=== PATIENT | male | born 1980 | race Caucasian/White ===

== ENCOUNTER 2019-08-21 18:46 | Emergency (ER) | payer OTHER, SELFPAY ==
[2019-08-21 19:00] VITALS: BP 148/84; PULSE 78; RESP 16; TEMP 36.2; O2SAT 98
--- NOTE | 2019-08-21 19:06 | ED.GENADULT ---
HPI - General Adult General Chief complaint: Back Pain/Injury Stated complaint: back pain Time Seen by Provider: 08/21/19 19:06 Source: patient and RN notes reviewed Mode of arrival: ambulatory Limitations: no limitations History of Present Illness HPI narrative: 39-year-old male presents with complaints of LT mid-lower back pain/spasms for the past 5 days. Ice, heat, Tylenol, Naproxen (2 perscription tablets last this morning), stretching, and back brace with little relief. Eusebio says he was in his garage on 08/16/19 and went to bend over and back gave out. History of back problems. Denies new injuries or falls. Denies radiating pain, numbness, or tingling. Denies fever or chills. No upper or lower extremity pain or weakness. Exacerbating factors consist of prolong standing and bending. Denies diarrhea, nausea, vomiting, or abdominal pain. Tolerating po intake well. Denies problems with urinating or having a bowel movement, LBM today per patient and normal. No flank pain or hematuria or dysuria. Denies headaches, weakness, fatigue, myalgia, or facial swelling. Denies chest pain or dyspnea. Denies cough, rhinorrhea, congestion, sore throat. Denies recent traveling. Denies concerns for COVID-19 or exposures been home since [id number] order except for essential household needs and return home. Eusebio says he is currently working from home. Remains active. Some parts of this dictation were generated by voice recognition software and may contain typographical and/or grammatical inaccuracies. Related Data Home Medications Medication Instructions Recorded Confirmed methylphenidate HCl 54 mg PO DAILY 08/21/19 08/21/19 Allergies Allergy/AdvReac Type Severity Reaction Status Date / Time No Known Allergies Allergy Mild Verified 08/21/19 19:02 Review of Systems Review of Systems: Narrative: CONSTITUTIONAL: Denies fever, chills, sweats. EYES: Denies visual changes, redness, discharge. ENT: Denies rhinorrhea, congestion, sore throat, otalgia. CARDIOVASCULAR: Denies chest pain, palpitations, edema. RESPIRATORY: Denies dyspnea, wheezing, cough. GASTROINTESTINAL: Denies abdominal pain, nausea, vomiting, diarrhea. GENITOURINARY: Denies dysuria, hematuria, abnormal discharge. SKIN: Denies rash or itching. MUSCULOSKELETAL: Complains of LT mid-lower back pain/spasms. Denies joint pain or myalgia. NEUROLOGIC: Denies numbness or focal weakness. PSYCHIATRIC: Denies anxiety or depression. All systems reviewed & are unremarkable except as noted in HPI and below. [facility] Past Medical History Medical History ADHD (attention deficit hyperactivity disorder) Hernia congenital Surgical History Surgical History History of hernia surgery at age 3, congenital Family History Family History Father Diabetes mellitus Mother Hypertension Social History Social History Smoking status: Former smoker Tobacco type: cigarettes Second hand tobacco smoke exposure: No Smoking end date: 04/18/02 Alcohol intake: current Substance use: never Living arrangements: with family Occupation/Education: occupation Gender identity (if verbalized by the patient): Male Comments At time of signature, agree with nurse past medical, surgical, social, and family history. There is no relevant family history pertinent to the presenting complaint. Exam Narrative: Exam Narrative: GENERAL: This is a well-nourished, well-developed patient, in no apparent distress. Talks in full sentences without deficits and ambulates with slow steady gait without dyspnea. HEAD: normocephalic, atraumatic. EYES: PERRL. Sclera clear/white. Vision is grossly intact. NECK: Neck supple, non-tender without lympha
== END 2019-08-21 19:23 | disposition home or self-care (01) ==
PROVIDERS: Emergency Provider Nurse Practitioner Family; PCP Internal Medicine
DX: M54.5 Low back pain (principal); F90.9 Attention-deficit hyperactivity disorder, unspecified type; Z87.891 Personal history of nicotine dependence
CPT/HCPCS: 99213; G0463

== ENCOUNTER → 2020-12-30 14:35 | Outpatient (CLI) | payer OTHER, SELFPAY ==
--- NOTE | ~2020-12-30 | XR_ITS ---
XR toe 1st RT min 2V DATE: 12/30/2020 15:46 INDICATION: Right great toe pain TECHNIQUE: 3 views COMPARISON: None FINDINGS: There is prominent joint space narrowing and spurring at the first metatarsophalangeal join t consistent with severe osteoarthritis. There is mild hallux valgus and bunion deformity. No fracture, dislocation, periosteal reaction or bone destruction. 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
--- NOTE | ~2020-12-30 | XR_ITS ---
XR_CERV2-3V_CR DATE: 12/30/2020 15:46 INDICATION: Neck pain TECHNIQUE: AP, open mouth, lateral views COMPARISON: None FINDINGS: There is mild reversal of lower cervical spine curvature. There is levoscoliosis of the cer vical and upper thoracic spine. C1 and C2 are normally aligned and the odontoid process is intact. No fracture or dislocation or lock ed facet or prevertebral soft tissue swelling. There is mild loss of interspace height at C3-4, C5-C6 and to a greater extent C6-7. IMPRESSION: Lower cervical spine reversal of curvature Mild levoscoliosis of the cervical and upper thoracic spine Mild to moderate degenerative disc disease at C3-4, C5-6 and to a greater extent C6-7 Reviewed, dictated and finalized at Location A. Reviewed, dictated and finalized at location A. IMPRESSION: Lower cervical spine reversal of curvature Mild levoscoliosis of the cervical and upper thoracic spine Mild to moderate degenerative disc disease at C3-4, C5-6 and to a greater exten t C6-7
--- NOTE | ~2020-12-30 | XR_ITS ---
XR shoulder LT min 2V DATE: 12/30/2020 15:46 INDICATION: Left shoulder pain TECHNIQUE: 4 views COMPARISON: None FINDINGS: No fracture, dislocation, periosteal reaction or bone destruction. Mild degenerative change at the left acromioclavicular joint. Thoracic scoliosis. IMPRESSION: Mild degenerative change at left Acromioclavicular joint Reviewed, dictated and finalized at location A.
== END ==
PROVIDERS: PCP Family Medicine; Visit Provider Nurse Practitioner Family
DX: M79.674 Pain in right toe(s) (principal); M25.519 Pain in unspecified shoulder; M53.82 Other specified dorsopathies, cervical region; M41.83 Other forms of scoliosis, cervicothoracic region; M50.322 Other cervical disc degeneration at C5-C6 level; M19.012 Primary osteoarthritis, left shoulder; M19.071 Primary osteoarthritis, right ankle and foot; M20.11 Hallux valgus (acquired), right foot; M21.611 Bunion of right foot
CPT/HCPCS: 72040; 73030; 73660

== ENCOUNTER → 2021-07-13 14:08 | Outpatient (CLI) | payer OTHER, SELFPAY ==
--- NOTE | ~2021-07-13 | XR_ITS ---
EXAMINATION: XR knee RT 3V DATE: 07/13/2021 14:18 INDICATION: Right knee pain. TECHNIQUE: 3 views of right knee including standing views were obtained. COMPARISON: None. FINDINGS: Bone alignment is normal. No fracture. There is mild osteoarthritis of medial and patellofe moral compartments characterized by tiny osteophytes. No joint space narrowing. No knee joint effusio n. IMPRESSION: 1. Mild right knee osteoarthritis. Reviewed, dictated and finalized at location A.
== END ==
PROVIDERS: PCP Family Medicine; Visit Provider Nurse Practitioner Family
DX: M25.561 Pain in right knee (principal)
CPT/HCPCS: 73562

== ENCOUNTER 2021-08-05 17:47 | Emergency (ER) | payer OTHER, SELFPAY ==
--- NOTE | ~2021-08-05 | CT_ITS ---
EXAMINATION: CT cervical spine wo con DATE: 08/05/2021 18:49 INDICATION: Neck pain TECHNIQUE: Computed tomography (CT) of the cervical spine was performed without intravenous contrast. The dose-length product (DLP) was 464.75 mGy-cm. Automated exposure control and iterative reconstruc tion technique were employed. COMPARISON: None FINDINGS: There is no fracture, dislocation, or subluxation. There is mild loss of intervertebral dis c space height at C3-4, C5-6, and C6-7. The vertebral body heights are maintained. Small degenerative osteophytes project from the anterior endplates of multiple vertebral bodies. The odontoid is intact . IMPRESSION: 1. Mild cervical spondylosis without acute findings. Reviewed, dictated and finalized at location F.
--- NOTE | ~2021-08-05 | CT_ITS ---
EXAMINATION: CT brain wo con INDICATION: Headache COMPARISON: None TECHNIQUE: Standard unenhanced head CT. The dose-length product (DLP) was 681.00 mGy-cm. The mA was a djusted according to patient size. Iterative reconstruction technique was employed. FINDINGS: There is no intracranial hemorrhage, acute infarction, or abnormal mass lesion. The ventric les are normal. There is no abnormal mass effect or midline shift. The ordonez-white matter differentiat ion is normal. The basal cisterns are patent. The orbits are normal. The paranasal sinuses, mastoids and calvarium are normal. IMPRESSION: 1. No acute intracranial abnormality. Reviewed, dictated and finalized at location F.
[2021-08-05 17:48] VITALS: BP 153/99; PULSE 52; RESP 18; TEMP 36.4; O2SAT 99
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
== END 2021-08-05 19:50 | disposition home or self-care (01) ==
PROVIDERS: Emergency Provider Family Medicine; PCP Family Medicine
DX: S16.1XXA Strain of muscle, fascia and tendon at neck level, initial encounter (principal); M47.812 Spondylosis without myelopathy or radiculopathy, cervical region; V43.52XA Car driver injured in collision with other type car in traffic accident, initial encounter
CPT/HCPCS: 70450; 72125; 99284

== ENCOUNTER → 2021-08-07 11:08 | Outpatient (CLI) | payer OTHER, SELFPAY ==
--- NOTE | ~2021-08-07 | MR_ITS ---
EXAMINATION: MR knee RT wo con DATE: 08/07/2021 11:40 INDICATION: Right knee pain TECHNIQUE: Magnetic resonance imaging (MRI) of the right knee was performed without intravenous contr ast. Sequences included coronal PD-weighted FSE, coronal PD-weighted FS FSE, sagittal T2-weighted FS E, sagittal PD-weighted FS FSE and axial PD weighted fat saturated FSE. COMPARISON: None. FINDINGS: Medial compartment: Longitudinal horizontal tear extending to the inferior articular surface of the body and posterior ho rn of the medial meniscus. Articular cartilage is normal. Lateral compartment: Lateral meniscus is normal. Articular cartilage is normal. Patellofemoral compartment: Partial-thickness chondral fissure involving approximately 50% the cartilage thickness at the central aspect of the medial patellar facet. Couple additional regions of deep chondral fissuring with mild underlying subarticular edema at the inferior aspect of the medial trochlea and at the inferior aspec t of the trochlear groove. Ligaments and tendons: Anterior and posterior cruciate ligaments are normal. The medial collateral ligament and fibular mauri ateral ligament complex are normal. The extensor mechanism is normal. The visualized medial and later al hamstring tendons as well as the iliotibial band are normal. Fluid: Physiologic amount of fluid in the joint space. No loose osteochondral bodies identified. Osseous/other: Normal marrow signal. No fracture or pathologic marrow replacing process. IMPRESSION: 1. Longitudinal horizontal tear of the medial meniscus. 2. Deep chondral fissuring in the patellofemoral compartment. Reviewed, dictated and finalized at location A.
== END ==
PROVIDERS: PCP Orthopaedic Surgery; Visit Provider Orthopaedic Surgery
DX: M25.561 Pain in right knee (principal); S83.241A Other tear of medial meniscus, current injury, right knee, initial encounter
CPT/HCPCS: 73721

== ENCOUNTER 2023-06-10 05:57 | Day surgery (SDC) | payer OTHER, SELFPAY ==
[2023-06-06 10:49] VITALS: BMI 27.5
--- NOTE | 2023-06-09 09:20 | WPDANESEPPF ---
Anes - Initial Pre Proc Eval Procedure: Operation Date: 06/10/23 09:15 Proposed Procedures p Arthrodesis First Metatarsophalangeal Joint Right Foot - David Pond JR, MD Date/Time: 06/09/23 09:20 Surgeon: David Pond JR, MD Pre Op Diagnosis: Arthritis First MPJ Right Foot Patient Data Age: 43 Gender: M Height: 1.91 m Weight: 100 kg Allergies Allergy/AdvReac Type Severity Reaction Status Date / Time No Known Allergies Allergy Mild Verified 06/10/23 08:02 Home Medications Medication Instructions Recorded Confirmed Type sildenafil 100 mg tablet 100 mg PO DAILY PRN sexual 09/11/21 06/10/23 Rx activity #30 tabs betamethasone dipropionate 0.05 % 1 applic topical DAILY PRN rash 12/07/22 06/10/23 Rx topical cream #45 grams methylphenidate HCl 54 mg 54 mg PO QAM #30 tabs 05/09/23 06/10/23 Rx tablet,extended release 24 hr ([facility]) Patient hx anesthesia problems: none Family hx anesthesia problems: none Results Review: All pre-operative results and documents have been reviewed as part of the pre-operative evaluation. [facility] Past Medical History Medical History ADHD (attention deficit hyperactivity disorder) BMI 25.0-25.9,adult BMI 26.0-26.9,adult BMI 27.0-27.9,adult Body mass index [BMI] 26.0-26.9, adult Hernia congenital Surgical History Surgical History History of hernia surgery at age 3, congenital Family History Family History Father Diabetes mellitus COVID-19 Mother Hypertension COVID-19 Sibling Skin cancer Depression Social History Social History Smoking status: Never smoker Tobacco type: cigarettes Second hand tobacco smoke exposure: No Smoking end date: 04/18/02 Alcohol intake: never Substance use: never Substance use type: does not use Do You Feel Safe in your Home?: Yes Lack of Transportation: No Lack of Food: Never True Current Housing: I Have Housing Concerned About Future Housing: No Difficulty Paying Gas/Electric Bills: No Difficulty Paying for Meds: No Currently Unemployed: No Education: Bachelor's Degree Difficulty w/ Childcare or Family Care: No Living arrangements: with family Occupation/Education: occupation 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 Informed Consent: The patient's anesthetic plan and its attendant risks and benefits were discussed with the patient/family/POA. Questions were solicited and answers provided to the satisfaction of the patient/family/POA.
[2023-06-10] VITALS (12 sets, daily range): BP systolic 106–125; BP diastolic 67–94; PULSE 69–87; RESP 12–16; TEMP 36.6–36.9; O2SAT 95–100
--- NOTE | ~2023-06-10 | XR_ITS ---
EXAMINATION: XR surgery orthopedic DATE: 06/10/2023 10:29 INDICATION: Hallux valgus. TECHNIQUE: 2 intraoperative fluoroscopic views of right foot were obtained. I was not present. Fluoro scopy exposure time was 12 seconds. COMPARISON: Right great toe radiographs 12/30/2020 FINDINGS: Bone alignment is normal. No fracture. There are changes of arthrodesis of first metatarsop halangeal joint with dorsal plate and screws and interfragmentary screw. There are calcifications med ial to head of first metatarsal. IMPRESSION: 1. Arthrodesis procedure of first metatarsophalangeal joint. Reviewed, dictated and finalized at location E. [employer]
--- NOTE | 2023-06-10 07:20 | WPDHPUPDATE1 ---
History and Physical Update Update Date/Time: 06/10/23 07:20 History and Physical has been reviewed, including an updated exam of the patient. There are NO changes in the patient's condition. Risks, benefits, and alternatives have been discussed and questions answered. Patient agrees to proceed with procedure.
[2023-06-10] MEDS: LACTATED RINGERS 1,000 ML 30 ML IV CONT (08:40)
--- NOTE | 2023-06-10 08:46 | WPDANESPNB ---
Anes - Peripheral Nerve Block Date/Time: 06/10/23 08:46 I have discussed with the patient/family/POA the placement of a peripheral nerve block for post-operative pain management, including associated risks, benefits, complications, and side effects. Alternative methods of post-operative analgesia were detailed. Questions were solicited and answers provided to the satisfaction of the patient/family/POA. Time-Out: A pre-procedural Time-Out was completed immediately before starting the procedure and confirmed: Patient Identification, Site, Procedure, Patient Position and the Availability of Requisite Equipment. Clinical Indications: Acute post-operative pain management requested by the operative surgeon. Nerve Block Insertion Note Anes-nerve block: posterior fossa sciatic right and adductor canal right Patient position: supine (for adductor canal) and other (right lateral for popliteal) Skin prep: chlorhexidine Needle: 22 gauge, stimulating, insulated echogenic needle. Needle length: 80 mm Technique: nerve stimulation lost at (mA) (for popliteal lost at 0.2) and ultrasound Injectate: bupivacaine 0.5% with epi 5 mcg/ml (20 mL for popliteal, 10 mL for adductor canal (no epi)) Observations: tolerated well Complications: none Procedure start time:: 854 Procedure end time:: 902
[2023-06-10] MEDS: ceFAZolin SODIUM 2 GM/20 ML SW SYRINGE IV PUSH (09:16)
--- NOTE | 2023-06-10 10:30 | PM.OP ---
Procedure Note - Brief Procedure Note - Brief Date of procedure: 06/10/23 Arthritis First MPJ Right Foot Procedure performed: Arthrodesis of the 1st MPJ right foot Surgeon: David Pond JR, DPM Description of procedure: Severe hypertrophy and joint degeneration.
[2023-06-10] MEDS: fentaNYL CITRATE INJ (*CRX) 100 MCG/2 ML VIAL 25 MCG IV PUSH ×4 (10:55→11:22)
--- NOTE | 2023-06-10 11:08 | WPDANESPN ---
Anes - Prog Note Post-Op Date/Time: 06/10/23 11:08 Cardiovascular status: normal Respiratory status: normal Airway patency: baseline Mental status: baseline Post-Op hydration status: normal Vital Signs: Last Vital Signs Temp 36.6 C 06/10/23 10:31 Pulse 87 06/10/23 11:01 Resp 13 06/10/23 11:01 BP 111/68 06/10/23 11:01 Pulse Ox 98 06/10/23 11:01 O2 Del Method Room Air 06/10/23 11:01 O2 Flow Rate 8 06/10/23 10:41 Pain Score (VAS): 4 I/O: Intake & Output 06/09/23 06/10/23 06/10/23 23:59 07:59 15:59 Intake Total 800 Balance 800 Post-procedural complaints: none Patient Feedback: Patient satisfied with anesthetic care. Other Findings: Patient vital signs back to baseline. Patient denies nausea and vomiting. Patient's pain under control. Patient OK for discharge.
--- NOTE | 2023-06-10 12:00 | W.PM.PROC2 ---
Procedure Note - Detailed Date of Procedure 06/10/23 Pre-op Diagnosis Arthritis First Metatarsal Phalangeal Joint Right Foot Post-op Diagnosis Same Procedure Performed Arthrodesis of the first metatarsal phalangeal joint right foot Surgeon David Pond JR, ELAINE Anesthesia General and Regional Findings Severe joint degeneration with hypertrophy of the 1st MPJ Description of Procedure PROCEDURE IN DETAIL: Under mild sedation, the patient was brought into the operating room, placed on the operating table in supine position. A pneumatic ankle tourniquet was placed about the patient's ipsilateral ankle. Following general anesthesia and a popliteal fossa block, the foot was then scrubbed, prepped, and draped in the usual aseptic manner. An Esmarch bandage was then used to exsanguinate the patient's foot and the pneumatic ankle tourniquet was then inflated. Surgery began in the following manner: Attention was directed to the dorsal medial aspect of the 1st metatarsophalangeal joint where there was a moderate subcutaneous prominence was noted. The incision was made starting along the central shaft of the 1st metatarsal and extending just proximal to the interphalangeal joint of the hallux. The incision was continued deep down through the subcutaneous tissues using sharp and blunt dissection. All bleeders were cauterized as necessary. At this point, the dissection was continued down to the level of the periosteum and capsular structures overlying the 1st metatarsophalangeal joint. A full length periosteum and capsular incision was made just medial to the extensor hallucis longus tendon. The periosteum and capsular structures were freed from the base of the proximal phalanx as well as the distal 1st metatarsal. At this point, the 1st metatarsophalangeal joint was identified. There was loss of articular cartilage to the head of the 1st metatarsal as well as the base of the proximal phalanx worse centrally and medially. There was significant broadening and hypertrophy of the 1st metatarsophalangeal joint. Utilizing a sagittal bone saw, the hypertrophied 1st metatarsal was resected dorsally, medially, and laterally. A power bur was used to make sure that there were no rough edges and also to further debride the hypertrophic 1st metatarsal. Next, a rongeur was used to resect the hypertrophic base of the proximal phalanx. At this point, the reamer system for the Maxforce plaste system was used to denude the degenerative cartilage from the head of the 1st metatarsal as well as the base of the proximal phalanx. The cartilage and subchondral bone were fully debrided utilizing the reamer system until healthy bleeding bone was noted. Next, a 2-0 drill bit was used to further fenestrate the head of the 1st metatarsal as well as the base of the proximal phalanx in order to allow fusion across the 1st metatarsophalangeal joint. Next, a guide wire for a 3.0 Headed Arthrex compression screw was driven from the medial aspect of the base of the proximal phalanx into the head of the 1st metatarsal in order to serve as temporary fixation, next the cannulated screw was driven and provided excellent compression. Next A large steel plate was used to make sure that the hallux was in a rectus position both in the sagittal plane as well as the frontal plane. Excellent position of the hallux was noted. Next, a Maxforce plate was placed atop the 1st metatarsophalangeal joint held in position with Dana wires. Utilizing standard principles and techniques, the distal drill holes were drilled and three 3.0 mm mm fully-threaded locking screws were driven from dorsal to plantar holding the distal aspect of the plate intact. At this point, the Maxforce compression system was utilized from dorsal distal to proximal plantar across the 1st metatarsophalangeal joint with excellent compression noted. Next, a 3.0mm locking screw was used to further compress the joint along the
== END 2023-06-10 12:11 | disposition home or self-care (01) ==
PROVIDERS: PCP Family Medicine; Visit Provider Podiatrist Foot & Ankle Surgery
PROC: (CPT 28750; principal; 2023-06-10 09:15)
DX: M19.071 Primary osteoarthritis, right ankle and foot (principal)
CPT/HCPCS: 28750; C1713; 99199; L8699

== ENCOUNTER 2023-07-06 16:09 | Outpatient (CLI) | payer OTHER, SELFPAY ==
--- NOTE | ~2023-07-06 | CT_ITS ---
EXAMINATION: CT sinus wo con DATE: 07/06/2023 16:36 INDICATION: Chronic sinusitis TECHNIQUE: Computed tomography (CT) of the paranasal sinuses was performed without contrast. Iterativ e reconstruction technique was employed. Exam dose: 380.97 mGy-cm total exam DLP. COMPARISON: August 05, 2021 CT brain FINDINGS: There is prominent lateral deviation of the nasal septum. Prominent soft tissue swelling of the nasal turbinates. The ostiomeatal units are patent. Very diminutive right frontal sinus. Small mucus retention cyst or polyp of the anteromedial aspect of the right maxillary sinus. Small fo tootie area of mucoperiosteal thickening or mucous retention cyst along the posterior medial lower wall of the left maxillary sinus. There is partial opacification of a posterior left ethmoid air cell, chronic. The paranasal sinuses are otherwise clear. The mastoid air cells are normally developed and aerated. IMPRESSION: Prominent leftward deviation of nasal septum Small mucus retention cyst of anteromedial right maxillary sinus Minimal focal mucoperiosteal thickening or small mucus retention cyst, inferior posteromedial left ma xillary antrum Partially opacified posterior left ethmoid air cell, chronic Paranasal sinuses, ostiomeatal units and mastoid air cells are otherwise normally developed and aerat ed Reviewed, dictated and finalized at [facility]. Reviewed, dictated and finalized at [facility]. IMPRESSION: Prominent leftward deviation of nasal septum Small mucus retention cyst of anteromedial right maxillary sinus Minimal focal mucoperiosteal thickening or small mucus retention cyst, inferior posteromedial left maxillary antrum Partially opacified posterior left ethmoid air cell, chronic Paranasal sinuses, ostiomeatal units and mastoid air cells are otherwise normal ly developed and aerated
== END 2023-07-06 16:10 | disposition home or self-care (01) ==
PROVIDERS: PCP Family Medicine; Visit Provider Nurse Practitioner Adult Health
DX: J34.89 Other specified disorders of nose and nasal sinuses (principal); J32.9 Chronic sinusitis, unspecified; J34.2 Deviated nasal septum; J34.1 Cyst and mucocele of nose and nasal sinus
CPT/HCPCS: 70486

== ENCOUNTER 2025-03-30 07:29 | Day surgery (SDC) | payer OTHER, SELFPAY ==
[2025-03-06 15:03] VITALS: BMI 27.2
[2025-03-30 07:47] VITALS: BP 133/97; PULSE 87; RESP 18; TEMP 36.8; O2SAT 98
[2025-03-30] MEDS: LACTATED RINGERS 1,000 ML 150 ML IV CONT (07:52)
--- NOTE | 2025-03-30 09:17 | WPDANESEPPF ---
Anes - Initial Pre Proc Eval Procedure: Operation Date: 03/30/25 09:00 Proposed Procedures p Diagnostic Colonoscopy - Lan Burkett MD Date/Time: 03/30/25 09:17 Surgeon: Lan Burkett MD Pre Op Diagnosis: Other specified symptoms and signs involving the d Patient Data Age: 45 Gender: M Height: 1.91 m Weight: 96.85 kg Last Vital Signs Temp 36.8 C 03/30/25 07:47 Pulse 87 03/30/25 07:47 Resp 18 03/30/25 07:47 BP 133/97 H 03/30/25 07:47 Pulse Ox 98 03/30/25 07:47 O2 Del Method Room Air 03/30/25 07:47 Allergies Allergy/AdvReac Type Severity Reaction Status Date / Time No Known Allergies Allergy Mild Verified 03/30/25 07:45 Home Medications ?Medication ?Instructions ?Recorded ?Confirmed ?Type betamethasone dipropionate 0.05 % 1 applic topical DAILY PRN rash 12/06/24 03/30/25 Rx topical cream #45 grams sildenafil 100 mg tablet 100 mg PO DAILY PRN sexual 12/06/24 03/30/25 Rx activity #30 tabs roflumilast 0.3 % topical cream 1 applic topical DAILY #60 grams 01/28/25 03/30/25 Rx (Zoryve) methylphenidate HCl 54 mg 54 mg PO QAM ADHD #30 tabs 03/04/25 03/30/25 Rx tablet,extended release 24 hr (Concerta) ergocalciferol (vitamin D2) 1,000 5,000 mcg PO DAILY 03/20/25 03/30/25 History unit capsule Patient hx anesthesia problems: none Family hx anesthesia problems: none Results Review: All pre-operative results and documents have been reviewed as part of the pre-operative evaluation. [facility] Past Medical History Medical History (Updated 03/06/25 @ 09:29 by Theresa Vazquez APRN) Blood in stool Encounter for screening for malignant neoplasm of colon Deviated septum Maxillary sinus cyst Chronic sinusitis BMI 26.0-26.9,adult BMI 25.0-25.9,adult Body mass index [BMI] 26.0-26.9, adult BMI 27.0-27.9,adult ADHD (attention deficit hyperactivity disorder) Hernia congenital Surgical History Surgical History History of hernia surgery at age 3, congenital Family History Family History Father Diabetes mellitus COVID-19 Mother Hypertension COVID-19 Sibling Skin cancer Depression Social History Social History Smoking status: Never smoker Second hand tobacco smoke exposure: No Smoking end date: 04/18/02 Alcohol intake: never Substance use: never Substance use type: does not use Lack of Transportation: No Lack of Food: Never True Current Housing: I Have Housing Concerned About Future Housing: No Difficulty Paying Gas/Electric Bills: No Difficulty Paying for Meds: No Currently Unemployed: No Education: Bachelor's Degree Difficulty w/ Childcare or Family Care: No Living arrangements: with family Occupation/Education: occupation 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 Informed Consent: The patient's anesthetic plan and its attendant risks and benefits were discussed with the patient/family/POA. Questions were solicited and answers provided to the satisfaction of the patient/family/POA.
--- NOTE | 2025-03-30 09:19 | P.HP_ITS ---
H&P: HPI History of Present Illness Date/Time: 03/30/25 09:19 Chief Complaint: rectal bleeding Narrative: the patient is being referred for colonoscopy for the investigation of intermittent low-grade bright red rectal bleeding. There is no associated abdominal pain, tenesmus, urgency or unintentional weight loss. This is his 1st colonoscopy. Review of Systems Review of Systems: All systems reviewed & are unremarkable except as noted in HPI and below PMFSH Past Medical History Medical History (Updated 03/30/25 @ 09:21 by Lan Burkett MD) Blood in stool Encounter for screening for malignant neoplasm of colon Deviated septum Maxillary sinus cyst Chronic sinusitis BMI 26.0-26.9,adult BMI 25.0-25.9,adult Body mass index [BMI] 26.0-26.9, adult BMI 27.0-27.9,adult ADHD (attention deficit hyperactivity disorder) Hernia congenital Surgical History Surgical History History of hernia surgery at age 3, congenital Family History Family History Father Diabetes mellitus COVID-19 Mother Hypertension COVID-19 Sibling Skin cancer Depression Social History Social History Smoking status: Never smoker Second hand tobacco smoke exposure: No Smoking end date: 04/18/02 Alcohol intake: never Substance use: never Substance use type: does not use Lack of Transportation: No Lack of Food: Never True Current Housing: I Have Housing Concerned About Future Housing: No Difficulty Paying Gas/Electric Bills: No Difficulty Paying for Meds: No Currently Unemployed: No Education: Bachelor's Degree Difficulty w/ Childcare or Family Care: No Living arrangements: with family Occupation/Education: occupation 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[employer] Gender identity (if verbalized by the patient): Male Spiritual care concerns: No Meds Home Medications and Allergies Home Medications ?Medication ?Instructions ?Recorded ?Confirmed ?Type betamethasone dipropionate 0.05 % 1 applic topical YEISON LY PRN rash 12/06/24 03/30/25 Rx topical cream #45 grams sildenafil 100 mg tablet 100 mg PO DAILY PRN sexual 0 12/06/24 03/30/25 Rx activity #30 tabs roflumilast 0.3 % topical cream 1 applic topical DAILY #60 grams 01/28/25 03/30/25 Rx (Zoryve) methylphenidate HCl 54 mg 54 mg PO QAM ADHD #30 tabs 1 05/04/24 03/30/25 Rx tablet,extended release 24 hr (Concerta) ergocalciferol (vitamin D2) 1,000 5,000 mcg PO DAILY 1 05/21/24 03/30/25 History unit capsule Allergies Allergy/AdvReac Type Severity Reaction Status Date / Time No Known Allergies Allergy Mild Verified 03/30/25 07:45 Vital Signs Vital Signs - 24 hr 03/30/25 07:47 Temperature 98.3 F Pulse Rate 87 Respiratory Rate 18 Blood Pressure 133/97 H Pulse Oximetry 98 Oxygen Delivery Room Air Exam Const: General: cooperative and healthy appearing Resp: Effort & Inspection: normal respiratory effort and able to speak in complete sentences Auscultation: clear to auscultation bilaterally Cardio: Rate: regular rate Rhythm: regular rhythm GI: Inspection: normal to inspection GI Palp: No No hepatosplenomegaly present Auscultation: normal bowel sounds Rectal Exam: deferred Skin: General skin exam: normal color Psych: Appearance: grossly normal Mental Status: mental status grossly normal Assessment and Plan Assessment and plan (1) Bright red rectal bleeding: Code(s): K62.5 - Hemorrhage of anus and rectum Status: Acute Assessment and Plan: The patient is deemed a good candidate for the procedure. Consent signed. Will proceed. Prior Studies I have reviewed the following patient records and this information was taken into consideration when formulating the assessment and plan.: previous labs, previous ER visits, previous hospitalizations and previous clinic visits
[2025-03-30 09:47] VITALS: BP 124/96; PULSE 80; RESP 15; O2SAT 96
--- NOTE | 2025-03-30 09:50 | WPDANESPN ---
Anes - Prog Note Post-Op Date/Time: 03/30/25 09:50 Cardiovascular status: normal Respiratory status: normal Airway patency: baseline Mental status: baseline Post-Op hydration status: normal Vital Signs: Last Vital Signs Temp 36.8 C 03/30/25 07:47 Pulse 87 03/30/25 07:47 Resp 18 03/30/25 07:47 BP 133/97 H 03/30/25 07:47 Pulse Ox 98 03/30/25 07:47 O2 Del Method Room Air 03/30/25 07:47 Pain Score (VAS): 0 I/O: Intake & Output 03/29/25 03/30/25 03/30/25 23:59 07:59 15:59 Intake Total 0 Balance 0 Patient Feedback: Patient satisfied with anesthetic care.
[2025-03-30 09:57] VITALS: BP 134/94; PULSE 72; RESP 16; O2SAT 100
[2025-03-30 10:07] VITALS: BP 130/94; PULSE 75; RESP 18; O2SAT 100
== END 2025-03-30 10:18 | disposition home or self-care (01) ==
PROVIDERS: PCP Family Medicine; Referring Provider Nurse Practitioner Family; Visit Provider Internal Medicine Gastroenterology
PROC: 0DJD8ZZ Inspection of Lower Intestinal Tract, Via Natural or Artificial Opening Endoscopic (ICD-10-PCS; CPT 45378; principal; 2025-03-30 09:00)
DX: C20 Malignant neoplasm of rectum (principal)
CPT/HCPCS: 45380

== ENCOUNTER 2025-03-30 11:45 | Outpatient (NON) | payer OTHER, SELFPAY ==
--- NOTE | 2025-03-30 | S_PTH ---
PATIENT: Eusebio Aceves LOC: [facility] #:[id number] AGE/SX: 45/M ROOM: RE03/30/[address]: Lan Burkett MD : 1980 BED: DIS: 03/30/2025 SPEC #: [id number] RECD: 04/01/25 13:50 STATUS: TABITHA REPaul #: [id number] ANAND: 03/30/25 00:[address]: Lan Burkett DEPT: [facility] Surgical RECD BY: Terrie Hilario ENTERED: 04/01/25 13:51 SP TYPE: Surgical OTHR DR: Eliu Barcenas MD Tissues: A - Rectal Biopsy Procedures: Hematoxylin and Eosin Stain Gross and Microscopic Level 4 MLH1 MSH2 MSH6 PMS2
== END 2025-03-30 11:46 | disposition home or self-care (01) ==
LOC: ANHLAB 04-01 11:46
PROVIDERS: PCP Family Medicine; Visit Provider Internal Medicine Gastroenterology
DX: Z12.11 Encounter for screening for malignant neoplasm of colon (principal)
CPT/HCPCS: 88305; 88342

== ENCOUNTER 2025-04-01 08:52 | Outpatient (CLI) | payer OTHER, SELFPAY ==
[2025-04-01 10:01] LABS: Carcinoembryonic Antigen 2.2 ng/mL (0.0-3.0)
== END 2025-04-01 08:53 | disposition home or self-care (01) ==
LOC: ANHLAB 08:53
PROVIDERS: PCP Family Medicine; Visit Provider Internal Medicine Gastroenterology
DX: C20 Malignant neoplasm of rectum (principal)
CPT/HCPCS: 36415; 82378

== ENCOUNTER 2025-04-01 10:49 | Outpatient (CLI) | payer OTHER, SELFPAY ==
--- NOTE | ~2025-04-01 | CT_ITS ---
EXAM/PROCEDURE: CT chest abdomen pelvis w con HISTORY: mal nadia of colon COMPARISON: None available. TECHNIQUE: IV contrast enhanced CT of the chest abdomen and pelvis FINDINGS: In the chest, no gross evidence of metastatic or malignant disease. No acute process. Heart and great vessels and lungs appear within normal limits. The bones appear intact. 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 1.7 cm low-density lesion in the left lobe image 125 series 3. 5 mm low-density lesion right lobe image 150 series 3. The smaller lesions are not as well characterized. Adrenal glands kidneys spleen pancreas and stomach appear normal. Nonobstructive bowel gas pattern with moderate to large amount of stool extending to the cecum. Focal wall thickening in the rectosigmoid region on image 234 series 3. No bulky mesenteric or retroperitoneal lymphadenopathy or masses seen. No grossly inflamed appendix. Urinary bladder unremarkable. Prostate appears normal. Tiny fat-containing inguinal hernias. IMPRESSION: 1. Several lesions in the liver probably benign, however correlation with dynamic phase contrast-enhanced liver CT or abdominal MRI recommended for complete evaluation. 2. Focal thickening may be present in the rectosigmoid region of the large bowel and neoplastic lesion in this area is not excluded. 3. Other findings as above. No evidence of metastatic disease seen in the chest. Reviewed, dictated and finalized at location [facility]. OPERATOR IMPRESSION: 1. Several lesions in the liver probably benign, however correlation with dynam ic phase contrast-enhanced liver CT or abdominal MRI recommended for complete e valuation. 2. Focal thickening may be present in the rectosigmoid region of the large sandra l and neoplastic lesion in this area is not excluded. 3. Other findings as above. No evidence of metastatic disease seen in the chest .
== END 2025-04-01 10:50 | disposition home or self-care (01) ==
PROVIDERS: PCP Family Medicine; Visit Provider Internal Medicine Gastroenterology
DX: C18.9 Malignant neoplasm of colon, unspecified (principal)
CPT/HCPCS: 36415; 71260; 74177; 82378; Q9967